=== PATIENT | male | born 1970 | race Two or more races ===

== ENCOUNTER 2022-08-21 15:58 | Emergency (ER) | payer OTHER ==
[~2022-08-21] VITALS: Ht 177.8 cm; Wt 95.3 kg
== END 2022-08-21 21:26 | disposition home or self-care (01) ==
LOC: ER 15:58
DX: S60.031A Contusion of right middle finger without damage to nail, initial encounter (principal); X58.XXXA Exposure to other specified factors, initial encounter; Y93.9 Activity, unspecified; Y92.89 Other specified places as the place of occurrence of the external cause; Y99.9 Unspecified external cause status; Z88.6 Allergy status to analgesic agent